=== PATIENT | male | born 1985 | race Two or more races ===

== ENCOUNTER 2017-10-13 01:37 | Emergency (ER) | payer MEDICAID ==
[~2017-10-13] VITALS: Ht 177.8 cm; Wt 77.3 kg
[2017-10-13 03:23] VITALS: BP 108/67
== END 2017-10-13 03:36 | disposition home or self-care (01) ==
LOC: ER 01:37
DX: F10.129 Alcohol abuse with intoxication, unspecified (principal)
CPT/HCPCS: 99284

== ENCOUNTER 2018-02-27 17:09 | Emergency (ER) | payer MEDICAID ==
[~2018-02-27] VITALS: Ht 175.3 cm; Wt 81.0 kg
[2018-02-27 17:18] VITALS: BP 136/87
== END 2018-02-27 17:58 | disposition home or self-care (01) ==
LOC: ER 17:10
DX: S67.21XA Crushing injury of right hand, initial encounter (principal); F17.200 Nicotine dependence, unspecified, uncomplicated; X58.XXXA Exposure to other specified factors, initial encounter; Y93.89 Activity, other specified; Y92.89 Other specified places as the place of occurrence of the external cause; Y99.8 Other external cause status
CPT/HCPCS: 73130; 99284